=== PATIENT | male | born 1995 | race Caucasian/White ===

== ENCOUNTER 2020-06-18 09:43 | Outpatient (REF) | payer BC, SELFPAY ==
[2020-06-18 11:11] LABS: MANUAL DIFF FLAG NO
[2020-06-18 11:25] LABS: Basophils Percent Auto 0.3 % (0-2); Eosinophils Absolute Auto 0.1 X10*3/uL (0.0-0.4); Eosinophils Percent Auto 1.5 % (0-4); Hematocrit 47.3 % (42-52); Hemoglobin 16.2 g/dl (14.0-18.0); Imm Gran Abs Auto 0.02 X10*3/uL (0.00-0.03); Imm Gran Pct Auto 0.3 % (0.0-0.4); Lymphocytes Absolute Auto 1.7 X10*3/uL (1.2-4.9); Lymphocytes Percent Auto 29.5 % (20-40); Mean Corpuscular HGB Conc 34.2 g/dl (31.0-36.0); Mean Corpuscular Hemoglobin 28.8 pg (27.0-33.0); Mean Corpuscular Volume 84.2 fL (80-98); Mean Platelet Volume 9.4 fL (9.4-12.4); Monocytes Absolute Auto 0.5 X10*3/uL (0.1-1.2); Monocytes Percent Auto 8.5 % (2-11); Neutrophils Absolute Auto 3.5 X10*3/uL (2.0-8.3); Neutrophils Percent Auto 59.9 % (45-73); Platelet Count 289 X10*3/uL (160-400); Red Blood Count 5.62 X10*6/uL (4.60-5.80); Red Cell Distribution Width 12.3 % (11.0-16.0); White Blood Count 5.9 X10*3/uL (4.8-10.8)
[2020-06-18 11:53] LABS: Alanine Aminotransferase 83 U/L (0-40); Albumin Level 4.6 g/dL (3.5-5.0); Alkaline Phosphatase 88 U/L (39-117); Anion Gap 12 (12-20); Aspartate Amino Transferase 39 U/L (5-37); Bilirubin Total 1.1 mg/dL (0.0-1.0); Blood Urea Nitrogen 11 mg/dL (9-16); Calcium 9.7 mg/dL (8.4-10.2); Carbon Dioxide 26 mmol/L (22-29); Chloride 103 mmol/L (96-108); Cholesterol 174 mg/dL; Estimated Glomerular Filt Rate > 60; Glucose Fasting 81 mg/dL (60-99); HDL Cholesterol 59 mg/dL; LDL Cholesterol Calculated 91 mg/dl; Potassium 4.1 mmol/L (3.3-5.1); Sodium 137 mmol/L (135-145); Total Protein 7.6 g/dL (6.5-8.0); Triglycerides 123 mg/dL
== END 2020-06-18 09:44 | disposition home or self-care (01) ==
LOC: HO.MANLDS 09:43
PROVIDERS: PCP Internal Medicine; Visit Provider Internal Medicine
DX: Z00.00 Encounter for general adult medical examination without abnormal findings (principal)
CPT/HCPCS: 36415; 80053; 80061; 85025

== ENCOUNTER 2021-01-03 12:06 | Outpatient (REF) | payer BC, SELFPAY ==
[2021-01-03 14:47] LABS: Alanine Aminotransferase 74 U/L (0-40); Albumin Level 4.5 g/dL (3.5-5.0); Alkaline Phosphatase 80 U/L (39-117); Anion Gap 12 (12-20); Aspartate Amino Transferase 33 U/L (5-37); Bilirubin Total 0.6 mg/dL (0.0-1.0); Blood Urea Nitrogen 12 mg/dL (9-16); Calcium 9.8 mg/dL (8.4-10.2); Carbon Dioxide 26 mmol/L (22-29); Chloride 104 mmol/L (96-108); Estimated Glomerular Filt Rate > 60; Glucose Fasting 72 mg/dL (60-99); Potassium 4.2 mmol/L (3.3-5.1); Sodium 138 mmol/L (135-145); Total Protein 7.7 g/dL (6.5-8.0)
== END 2021-01-03 12:07 | disposition home or self-care (01) ==
LOC: HO.MANLDS 12:06
PROVIDERS: PCP Internal Medicine; Visit Provider Internal Medicine
DX: Z00.00 Encounter for general adult medical examination without abnormal findings (principal)
CPT/HCPCS: 36415; 80053

== ENCOUNTER 2024-04-01 11:41 | Outpatient (REF) | payer BC, SELFPAY ==
[2024-04-01 13:29] LABS: MANUAL DIFF FLAG NO
[2024-04-01 13:37] LABS: Basophils Absolute Auto 0.1 X10*3/uL (0.0-0.2); Basophils Percent Auto 0.6 % (0-2); Eosinophils Absolute Auto 0.2 X10*3/uL (0.0-0.4); Eosinophils Percent Auto 2.2 % (0-4); Hematocrit 48.3 % (42.0-52.0); Hemoglobin 16.3 g/dl (14.0-18.0); Imm Gran Abs Auto 0.02 X10*3/uL (0.00-0.03); Imm Gran Pct Auto 0.2 % (0.0-0.4); Lymphocytes Absolute Auto 2.7 X10*3/uL (1.2-4.9); Lymphocytes Percent Auto 30.8 % (20-40); Mean Corpuscular HGB Conc 33.7 g/dl (31.0-36.0); Mean Corpuscular Hemoglobin 28.7 pg (27.0-33.0); Mean Platelet Volume 9.3 fL (9.4-12.4); Monocytes Absolute Auto 0.8 X10*3/uL (0.1-1.2); Monocytes Percent Auto 8.9 % (2-11); Neutrophils Percent Auto 57.3 % (45-73); Platelet Count 323 X10*3/uL (160-400); Red Blood Count 5.68 X10*6/uL (4.60-5.80); Red Cell Distribution Width 12.9 % (11.0-16.0); White Blood Count 8.7 X10*3/uL (4.8-10.8)
[2024-04-01 14:12] LABS: Alanine Aminotransferase 175 U/L (0-40); Albumin Level 4.4 g/dL (3.5-5.0); Alkaline Phosphatase 78 U/L (39-117); Anion Gap 11 (12-20); Aspartate Amino Transferase 273 U/L (5-37); Bilirubin Total 0.6 mg/dL (0.0-1.0); Blood Urea Nitrogen 10 mg/dL (9-16); Calcium 10.1 mg/dL (8.4-10.2); Carbon Dioxide 26 mmol/L (22-29); Chloride 106 mmol/L (96-108); Estimated Glomerular Filt Rate > 60; Glucose Random 82 mg/dL (60-115); Sodium 139 mmol/L (135-145); Total Protein 8.1 g/dL (6.5-8.0)
--- OUTSIDE RECORDS SUMMARY | 2024-04-01 14:20 | XMS_ITS | Data Portability ---
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 Lab None recorded. Referral None recorded. Procedures None recorded. Surgeries None recorded. Imaging electrocar diogram 2015 016 juan In-Office Order, Internal Use Only DO Not Attach Compendium DO Not Attach Compendium, Do Not Delete/merge, [id number] 6 11:30:53 Medication Orders amoxicilli n 875 mg tablet 2018 019 [facility] #[id number], [address], [place], [id number], 9 17:06:39 Medrol (Yon) 4 mg tablets in a dose pack 2018 019 [facility] #[id number], [address], [place], [id number], 9 17:06:40 Patient TargetsNo targets recorded. Patient Instructions Encounter Date Encounter Id Patient Instructions Last Modified By Organization Details Last Modified Time 10/31/2016 [id number] depression screening* SUSANNE Not available 05/20/2017 05:01:05 discused prevention for his age Next OV 3 yrs -- Labs Eye exam at least 3-5 yrs [email or web address] Not available 10/31/2016 09:30:38 03/03/2018 [id number] possible bilateral serous otitis media and he will continue with OTC Claritin or Zyrtec 1 tablet daily Tylenol as needed for symptomatic relief. If no improvement or any worsening over the next 2-3 days he will follow up with his PCP wild Not available 03/03/2018 17:11:35 Reason for Referral None Reported. Results Created Date Observation Date Name Description Value Unit Range Abnormal Flag Note LastModifiedBy Organization Detail LastModifiedTime 05/26/19 16 elect juan diogr am No observ ation record ed. [email or web address] Not Available 2015 10:55:56 Result Notes None recorded. Problems No Known Problems Procedures Surgical History Date Name Laterality Status Provider Name and Address Organization Details Recorded Time 05/26/19 16 Walk-In Pre Employment Physical completed Nick Collins MD [address] [address], [place], [address], [facility] - [facility], [facility] 05/26/2015 11:17:42 02/05/19 04 Appendectomy completed Darrius Partida [facility], [facility] 05/26/2015 10:32:44 Imaging Results Imaging Date Name Status LastModified by Organization Details LastModified Time 05/26/2015 electrocardiogram completed [email or web address] Informa tion not available 05/26/2015 10:55:56 Procedure Notes None recorded. Medical Equipment None Reported. Allergies No known drug allergies Medications Name Sig Start Date Stop Date Status Note LastModified by Organization Details LastModified Time amoxicillin 875 mg tablet Take 1 tablet every 12 hours by oral route for 7 days. active Not Available Not Available No t Available methylprednisolo ne 4 mg tablets in a dose pack Take 1 dose pk by oral route. active Not Available Not Available No t Available Vitals Date Recorded Body mass index (BMI) Body weight Body height Respiratory rate Heart rate Body temperature Oxygen saturation Oxygen saturation in Arterial blood by Pulse oximetry Systolic blood pressure Diastolic blood pressure Provider Name and Address Organization Details Last Updated DateTime 6 23.9 kg/m2 65020.2 81610 g 177.8 cm 16 /min 78 /min 98.3 [degF] 98 % 98 % 118 mm[Hg] 68 mm[Hg] Coty Stiles [facility], [facility] 6 10:52:28 Date Recorded Body weight Body mass index (BMI) Body height Respiratory rate Heart rate Oxygen saturation Oxygen saturation in Arterial blood by Pulse oximetry Systolic blood pressure Diastolic blood pressure Provider Name and Address Organization Details Last Updated DateTime 7 56540.0 3 g 25.7 kg/m2 177.8 cm 17 /min 82 /min 97 % 97 % 110 mm[Hg] 70 mm[Hg] Donna Moran [facility], [facility] 7 08:59:42 Date Recorded Body weight Body mass index (BMI) Body height Body temperature Heart rate Respiratory rate Oxygen saturation Oxygen saturation in Arterial blood by Pulse oximetry Systolic blood pressure Diastolic blood pressure Provider Name and Address Organization Details Last Updated DateTime 9 33498.1 g 28.1 kg/m2 177.8 cm 98 [degF] 80 /min 16 /min 98 % 98 % 126 mm[Hg] 70 mm[Hg] Jessie Mahmood [facility] 9 16:55:09 Social History Question Answer Notes LastModified by Organizat ion Details LastModified Time Tobacco Smoking Status Never Smoker Darrius urban [facility], [facility] 05/26/2015 10:32:44 Do You Have An Advance Directive? No Information not available 10/31/2016 What Is Your Level Of Alcohol Consumption? Occasional Information not available 10/31/2016 Are You Blind Or Do You Have Difficulty Seeing? No Information not available 10/31/2016 How Much Tobacco Do You Chew? None Information not available 10/31/2016 Are You Deaf Or Do You Have Serious Difficulty Hearing? No Information not available 10/31/2016 Which Illicit Or Recreational Drugs Have You Used? 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 0 Information no t available 10/31/2016 Update Mammo/Colonoscopy In Surgical Hx No Information not available 10/31/2016 Alcohol Use Less Than 1 Per Month Information not available 10/31/2016 Year Quit Tobacco Use 0 Information not available 10/31/2016 Marital Status Single Informatio n not available 10/31/2016 What Was The Date Of Your Most Recent Tobacco Screening? 10/31/2016 Information not available 08/30/2018 At What Age Did You Start Smoking Tobacco? 0 Information not available 10/31/2016 How Much Tobacco Do You Smoke? No Information not available 10/31/2016 How Many Years Have You Smoked Tobacco? 0 Information not available 10/31/2016 Sex: Unknown Functional Status Question Answer Note LastModified by Organization D etails LastModified Time Do you have difficulty walking or climbing stairs? No Information not available 10/31/2016 Do you have difficulty doing errands alone? No Information not available 10/31/2016 Do you have difficulty dressing or bathing? No Information not available 10/31/2016 What is your exercise level? Heavy Information not available 10/31/2016 Mental Status Question Answer Note LastModified by Organization D etails LastModified Time Do you have difficulty concentrating, remembering or making decisions? No Information no t available 10/31/2016 Family History Relationship Description Onset Age of this Age Resolved Age Notes LastModified by Organization Details LastModified Time Mother Alive Not available 10/31/2016 09:01:11 Father Alive Not available 10/31/2016 09:01:11 Father Hypertensive disorder age 50 [email or web address] Not available 2016 09:13:53 Brother Well adult AGE 24 Not avai labsharath 10/31/2016 09:02:03 Maternal Uncle Diabetes mellitus [email or web address] Not available 2016 09:14:13 Medical History Condition Response Cancer (location) N Other N Gout N Thyroid Disease N Kidney Stones N Measles/Mumps N Emphysema/COPD N Sexually Transmitted Disease N Depression N Prostate Problems N Vascular Disease N Rash/Skin Condition N Amputation (location) N Parkinson's N Paralysis N Headaches/Migraines N Cardiac Pacemaker/defibrillator N Nerve Damage / Neuropathy N Arthritis N Sleep disorder/Insomnia N Heart disease / Heart Attack N Crohn's Disease N HIV/AIDS N Stroke/TIA N Colon Problems N High Cholesterol N Serious Injuries N Kidney Disease N Memory Loss/Alzheimer's N Gallbladder disease N High blood pressure N Congestive heart failure N Falls N Alcohol Overuse N Blood Thinner Treatment N Hormone Replacement N Nervous Breakdown N Harper's Esophagus N Anemia N Urinary Problems N Colon Polyps N Gastritis N Hospitalizations (other than operations) N Back pain N Diabetes N Rheumatic Fever N Bleeding Disorder N Cardiac Arrhythmias /irregular heart rat e N Osteopenia/Osteoporosis N Anxiety/Stress N Asthma N Vision Problems N Erectile / Sexual Dysfunction N Ostomies (location) N Seizures N Jaundice N Sleep Apnea N Hepatitis N Cirrhosis N GERD/Ulcer N Chicken Pox N Allergies (other than meds) N Immunizations Vaccine Type Date Status Note Provider Nam e and Address Organization Details Recorded Time Tdap 08/19/2016 completed Donna [facility] [place] [facility], [facility] 10/31/2016 09:00:50 Past Encounters Encounter ID Performer Location Encounter Start Date Encounter Closed Date Diagnosis/Indication Diagnosis SNOMED-CT Code Diagnosis ICD10 Code Diagnosis Note [id number] MD [facility] [address] [place] [id number] 05/26/2015 10:07:23 05/26/2015 11:26:56 History and physical examination, pre-employment 851323345 Z02.1 [id number] MD [facility] [address] [address] 10/31/2016 08:56:11 10/31/2016 09:31:55 Increased body mass index 74509187 Z68.26 elevated BMI.- not an issue he has been exercising and quite muscular Adult [facility] examination 445562221 Z00.00 Screening for disorder 323681288 Z13.9 [id number] Isabel Condon MD [facility] [address] [place], [place] [address] [address] 03/03/2018 16:43:44 03/03/2018 17:12:20 Bilateral earache 436871840 H92.03 Health Concerns Section Related Observation LastModified by Organization Detai ls LastModified Time None Recorded Concern Status LastModified by Organization Details LastModified Time None Recorded Advance Directives Directive N: Payers Encounter Date Sequence Insurance Name Policy Number Policy Bourgeois Covered Member ID Bourgeois Member ID Guarantor Name 05/26/2015 1 *SELF PAY* Er ik D Fickett 05/26/2015 1 [facility] [employer] (HMO) [id number] Daniel A Fickett [id number] Rudy D Fickett 10/31/2016 1 [employer] (O) [id number] Rudy D Fickett [id number] Rudy D Fickett 03/03/2018 1 [facility] [id number] Rudy D Fickett [id number] Rudy D Fickett Notes Date Note Type Note Provider Name and Address Organization Details Recorded Time 6 text/html Extensive/Preventative ExamReported bypatient.Reason for Visit:pre-employment physicalNotes:Patient is here for Pre-employment Work Physical Nick Collins MD [address], [place], [address], [facility] 05/26/2015 11:18:26 7 text/html New Pt to me Take no 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 Karen Gonzalez MD [address], [email or web address], [address], [facility] [employer] [facility], [place] work 10/31/2016 09:32:26 9 text/html Ear ComplaintReported bypatient.Reason for visit:acute complaint Location:bilateral ears; left ear Quality:pain; plugging; hearing loss Severity:unchanged Duration:constant Onset/Timing:gradual;2 days ago Context:no recent swimming; no recent injury Alleviating factors:nothing Aggravating factors:nothing Associated Symptoms:head congestion; no fever; no swollen lymph nodes; no exudates; no jaw pain Isabel Condon MD [address] [address], [place], [address], [facility] - [facility], [facility] 03/03/2018 17:12:55
--- OUTSIDE RECORDS SUMMARY | 2024-04-01 14:20 | XMS_ITS | Data Portability ---
Author Organization [facility] Address [address] [place] [address] Assessment Encounter Date Assessment Date Assessment LastModified by Organization Details LastModified Time 03/08/2022 03/08/2022 [id number] [place] [id number] ([employer]) : MDM LOW MUST MEET 2 OF 3 ELEMENTS: PROBLEMS, DATA OR RISK ELEMENT 1: PROBLEMS ADDRESSED (LOW): 2 OR MORE SELF-LIMITED OR MINOR PROBLEMS OR 1 STABLE CHRONIC ILLNESS OR 1 ACUTE UNCOMPLICATED ILLNESS OR INJURY ELEMENT 2: DATA TO BE REVISED AND ANALYZED (LOW) MUST MEET 1 OF 2 CATEGORIES: CATEGORY 1. REVIEW OF PRIOR EXTERNAL NOTES/RESULTS, ORDERING OF TEST(S) CATEGORY 2. ASSESSMENT REQUIRING INDEPENDENT HISTORIAN(S) INCLUDE WHO THE HISTORIAN IS AND RELATION TO PT AND WHY PT IS UNABLE TO GIVE COMPLETE HISTORY ELEMENT 3: RISK (LOW) RISK OF COMPLICATIONS AND/OR MORBIDITY OR MORTALITY OF PATIENT MANAGEMENT PROVIDER MUST THOROUGHLY DOCUMENT ALL OF THE ELEMENTS COVERED [email or web address] Not available 03/08/2022 09:33:33 04/01/2024 04/01/2024 Patient presented for medication refill. Patient tolerating medication well at current dose without adverse effects. Refilled as below. Discussed plan with patient, who expressed understanding. Follow up as noted below. [email or web address] Not available 04/01/2024 11:28:52 Plan of Treatment Reminders Order Date Submit Date Provider Last Modified By Organization Details Last Modified Time Details Appointments FOLLOW UP 15 2024 11:15A ANDREW DONALDSON Not available Not available Not available Lab CMP, serum or plasma 2024 025 [facility], [address] [place] [address], [place], [address], 04/01/2024 11:38:27 CBC w/ auto diff 2024 025 [facility], [address] [place] [address], [address], 04/01/2024 11:38:27 CMP, serum or plasma 2020 021 [facility], [address] [place], [address], 01/04/2021 11:57:25 Referral None recorded. Procedures None recorded. Surgeries None recorded. Imaging holter monitor - 24 hr monitor 2022 023 [facility] ? [facility] ? Referrals Only, [address] [facility], [place], [address], 04/05/2022 08:40:40 Medication Orders propranol ol 20 mg tablet 2024 025 [facility][id number], [address] [place], [address], 04/01/2024 11:28:55 propranol ol 20 mg tablet 2020 021 [id number], [address] [place], [address], 12/15/2020 10:34:12 Patient TargetsNo targets recorded. Patient InstructionsNo instructions recorded. Reason for Referral None Reported. Results Created Date Observation Date Name Description Value Unit Range Abnormal Flag Note LastModifiedBy Organization Detail LastModifiedTime Result Notes None recorded. Problems Name Problem SNOMED Code Status Onset Date Resolution Date Notes Provider Name and Address Organization Details Recorded Time Environmen ahmet allergy 753609995 Active 2020 Delon Anderson DO [address] [place], [address], [facility] 15:04:26 Anxiety 48512982 Active 2020 ANDREW MCCLELLAND [address] [place], [address], [facility] 1 11:44:35 Intermitte nt palpitatio ns 268047557 Active 2022 Delon Anderson DO [address] [place], [address], [facility] 3 09:30:29 Palpitatio ns 12530673 Active 2024 ANDREW MCCLELLAND [address] [place], [address], [facility] 5 11:30:07 Problem Notes None recorded. Medical Equipment None Reported. Allergies No known drug allergies Medications Name Sig Start Date Stop Date Status Note LastModified by Organization Details LastModified Time azithromyci n 250 mg tablet TAKE 2 TABLETS BY MOUTH TODAY, THEN TAKE 1 TABLET DAILY FOR 4 DAYS DIRECTED 03/14 completed Not Available Not Available Not Available Tubersol 5 tub. unit/0.1 mL intradermal injection solution Inject 1 unit by intraderm al route. 12/15 completed Not Available Not Available Not Available methylpredn isolone 4 mg tablet TAKE 6 TABLETS ON DAY 1 AND DECREASE BY 1 TABLET EACH DAY FOR A TOTAL OF 6 DAYS 01/24 completed Not Available Not Available Not Available propranolol 10 mg tablet TAKE 1 TABLET BY MOUTH EVERY DAY 01/03 completed Not Available Not Available Not Available amoxicillin 875 mg tablet TAKE 1 TABLET (ORAL) 2 TIMES PER DAY FOR 10 DAYS FOR INFECTION 12/15 completed Not Available Not Available Not Available meclizine 25 mg tablet TAKE 1 TABLET (ORAL) 1 TIME PER DAY FOR MOTION SICKNESS. TAKE FIRST DOSE 1 HOUR PRIOR TO TRAVEL 12/15 completed Not Available Not Available Not Available prednisone 50 mg tablet TAKE 1 TABLET EVERY MORNING FOR 3 DAYS 12/15 completed Not Available Not Available Not Available methylpredn isolone 4 mg tablets in a dose pack TAKE 6 TABLETS ON DAY 1 DIRECTED ON PACKAGE AND DECREASE BY 1 TAB EACH DAY FOR A TOTAL OF 6 DAYS 03/14 completed Not Available Not Available Not Available propranolol 20 mg tablet Take 1 tablet every day by oral route as directed for 90 days. 2024 active Not Available Not Available Not Avai lable Zyrtec 10 mg capsule Take 1 capsule every day by oral route. active Not Available Not Available No t Available Vitals Date Recorded Body height Oxygen saturation Oxygen saturation in Arterial blood by Pulse oximetry Heart rate Systolic blood pressure Diastolic blood pressure Provider Name and Address Organization Details Last Updated DateTime 1 177.8 cm 98 % 98 % 90 /min 148 mm[Hg] 90 mm[Hg] Raisa Sarabia [facility] 1 10:13:52 Date Recorded Body height Body mass index (BMI) Body weight Systolic blood pressure Diastolic blood pressure Provider Name and Address Organization Details Last Updated DateTime 01/03/2021 177.8 cm 29.7 kg/m2 40082.6 2 g 110 mm[Hg] 74 mm[Hg] Delon Anderson DO [address] [place] [address], [phone] 1 11:46:05 Date Recorded Body weight Heart rate Oxygen saturation Oxygen saturation in Arterial blood by Pulse oximetry Systolic blood pressure Diastolic blood pressure Provider Name and Address Organization Details Last Updated DateTime 4 315357. 55 g 79 /min 97 % 97 % 110 mm[Hg] 72 mm[Hg] Alexandrea Drew [facility] 4 11:23:52 Date Recorded Body height Body mass index (BMI) Body weight Heart rate Oxygen saturation Oxygen saturation in Arterial blood by Pulse oximetry Systolic blood pressure Diastolic blood pressure Provider Name and Address Organization Details Last Updated DateTime 5 177.8 cm 32.6 kg/m2 469934. 26 g 77 /min 94 % 94 % 118 mm[Hg] 82 mm[Hg] Alexandrea Saud [facility] 5 11:22:58 Social History Question Answer Notes LastModified by Organizat ion Details LastModified Time Tobacco Smoking Status Never Smoker Delon Anderson DO [address] [place] [address], [address], [facility] 06/16/2020 15:04:43 What Was The Date Of Your Most Recent Tobacco Screening? 04/01/2024 [email or web address] Information not available 04/01/2024 Sex: Unknown Functional Status None recorded. Mental Status None recorded. Family History Nothing Reported. Medical History No medical history recorded. Immunizations Vaccine Type Date Status Note Provider Nam e and Address Organization Details Recorded Time COVID-19, mRNA, LNP-S, PF, 30 mcg/0.3 mL dose 1 completed Not Available [facility] 06/20/2021 14:25:33 COVID-19, mRNA, LNP-S, PF, 30 mcg/0.3 mL dose 1 completed Not Available [facility] 06/20/2021 14:25:33 Tdap 1 completed Not Available [facility] 06/20/2021 14:25:33 Influenza, split virus, quadrivalent, preservative 1 completed Not Available [facility] 06/20/2021 14:25:33 meningococcal MCV4P 5 completed Not Available [facility] 06/20/2021 14:25:33 COVID-19, mRNA, LNP-S, PF, 30 mcg/0.3 mL dose 1 completed Not Available [facility] 06/20/2021 14:25:33 Past Encounters Encounter ID Performer Location Encounter Start Date Encounter Closed Date Diagnosis/Indication Diagnosis SNOMED-CT Code Diagnosis ICD10 Code Diagnosis Note [id number] Delon Anderson DO [facility] [address] [facility],[place] [address] 06/16/2020 14:45:59 06/16/2020 15:43:33 Adult health examination 851703128 Z00.00 [id number] ANDREW MCCLELLAND [facility] [address] [place] [address],[place] [address] 07/28/2020 11:29:00 07/28/2020 13:08:24 Anxiety 42905441 F41.1 will trial propronalo miguel call back in a week with update Palpitations 72355752 R0 0.2 agreed to start low dose [id number] ANDREW MCCLELLAND [facility] [address] [facility],[place] [address] 08/30/2020 10:44:25 08/30/2020 11:23:47 Tuberculosis screening 402779513 Z11.1 [id number] Delon Anderson, [facility] [address] [facility] [address] [address] 09/01/2020 09:52:52 09/01/2020 09:59:09 Tuberculosis screening 471344961 Z11.1 [id number] ANDREW MCCLELLAND [facility] [address] [facility] [address] [address] 12/15/2020 09:55:18 12/15/2020 10:54:26 Anxiety 42286091 F41.1 discussed in detail what to do for coping mechanisms what to expect and how to manage his anxiety Palpitations 76668275 R0 0.2 will increase his dose to 20 mg as he states it helps with both his anxiety [place] [id number] Delon Anderson [facility] [address] [facility] [address] [address] 01/03/2021 11:24:14 01/03/2021 12:04:57 Active or passive immunization 761529390 Z23 Adult heal th examination 755055742 Z00.00 [id number] Delon Anderson, [facility] [address] [facility] [address] [address] 03/08/2022 08:38:05 03/10/2022 10:38:56 Intermittent palpitations 006398525 R00.2 Anxiety 51196902 F41.1 had issues with a lot of stress this past yearlost a close friendwork [place] [id number] ANDREW MCCLELLAND [facility] [address] [facility] [address] [address] 06/26/2023 10:54:47 06/27/2023 07:58:58 Depression screening 405192238 Z13.31 negative Intermitte nt palpitations 554309553 R00.2 stabledoin g really well [id number] ANDREW MCCLELLAND [facility] [address] [facility] [address] [address] 04/01/2024 11:14:02 04/01/2024 13:39:39 Renewal of prescription 025824365 Z76.0 Palpitations 82377364 R0 0.2 stable, works well for the patient Anxiety 56903941 F41.1 stable Screening for cardiovascular system disease 721468468 Z13.6 will set up with screening Health Concerns Section Related Observation LastModified by Organization Detai ls LastModified Time None Recorded Concern Status LastModified by Organization Details LastModified Time None Recorded Advance Directives Directive None Recorded Payers Encounter Date Sequence Insurance Name Policy Number Policy Bourgeois Covered Member ID Bourgeois Member ID Guarantor Name 12/15/2020 1 [place] [facility] [id number] Daniel A Fickett [id number] Rudy Fickett 01/03/2021 1 [place] [facility] [id number] Daniel A Fickett [id number] Rudy Fickett 03/08/2022 1 [place] [facility] [id number] Daniel A Fickett [id number] Rudy Fickett 06/26/2023 1 [place] [facility] ([place]) [id number] Daniel A Fickett [id number] Rudy Fickett 04/01/2024 1 [place] [facility] ([place]) [id number] Daniel A Fickett [id number] Rudy Fickett Notes Date Note Type Note Provider Name a ok Address Organization Details Recorded Time 1 text/html c/o palpitations the patient reports that he states thinking about it when he has been having the palpitations with increased anxiety with his developing his palpitations the patient reports that they are intermittentthe patient reports that they feel like skipped beatsincreased with the anxiety did submit order for the event monitor to r/o any concerning arrhythmiapatient agrees with this nimco fu in 30 days after monitoring ANDREW MCCLELLAND [address] [place] [address], [place], [address], [facility] 12/15/2020 10:40:40 1 text/html Annual WellnessReported bypatient.Diet and Nutrition:healthy diet Fracture Risk:no history of fractures; no recent explained fracture; no sudden unexplained fractures; no previous musculoskeletal injuries Physical Activity:exercises on a regular basis; recent increase in physical activity; good physical condition Additional Lifestyle Factors:no tobacco use; no alcohol intake; stopped drinking alcohol Depression Risk:never feels sad, empty, or tearful; no loss of interest in activities; no significant changes in weight; no sleep disturbances or insomnia; no agitation; no loss of energy; no feelings of worthlessness or guilt; no thoughts of suicide; no history of depression; no history of mood disorders Hearing:no loss of hearing Vision:no vision problemsNotes:has noted a big improvement from the 20mg for propranolol Delon Anderson DO [address] [place] [address], [phone], [facility] 01/03/2021 12:04:10 3 text/html Anxiety/DepressionRepo rted bypatient.Severity:den ies suicidal ideations; able to maintain relationships; does not interfere with activities of daily living Context:no major life stressors Associated Symptoms:denies homicidal ideations; no significant weight gain; no significant weight loss; no visual/auditory hallucinations; no delusions; no shortness of breath; mood good; no anxiety; no crying spells; no panic; no isolation; sleeping well; appetite good; energy good; no apathy; maintaining functionality patient is evaluated via tele/video assessment per patient consentduring current pandemic.here for med follow uppropranolol has helped a great deal but still has on occasionally states he has noted the palpitations can come on with certain meals ex steak dinner or chinesenoted every time could this be vagal nerve irritation?also did not call him back for the holter monitor Delon Anderson DO [address] [place] [address], [address], [facility] 03/08/2022 09:35:42 4 text/html f/u appt palpitations: doing better with the propranololthe patient notes that he gets palpitations with eating greasier foodshas been good with his diet doing well no seasonal allergies doing well on the propranolol ANDREW MCCLELLAND [address] [place], [address], [facility] 06/26/2023 11:37:54 text/html medication check palpitations: the patient is doing well on the medication, no issues or allergies, will continue on the medicationanxiety: stable, no issues or concerns needs updated lab workthe patient is doing well overallno questions ANDREW MCCLELLAND [address] [place] [address], [address], [facility] 04/01/2024 11:38:40
--- OUTSIDE RECORDS SUMMARY | 2024-04-01 14:21 | XMS_ITS | Continuity of Care Document ---
Author Organization [facility], [facility] Address [address] [place] [address] [place] [address] Assessment Encounter Date Assessment Date Assessment LastModified by Organization Details LastModified Time 04/01/2024 04/01/2024 Patient presented for medication refill. Patient tolerating medication well at current dose without adverse effects. Refilled as below. Discussed plan with patient, who expressed understanding . Follow up as noted below. [email or web address] Not available 04/01/2024 11:28:52 Plan of Treatment Reminders Order Date Submit Date Provider Last Modified By Organization Details Last Modified Time Details Appointments FOLLOW UP 15 2024 11:15A M ANDREW MCCLELLAND Not available Not available Not available Lab CMP, serum or plasma 2024 025 [facility], [address] [place] [address], [address], 04/01/2024 11:38:27 CBC w/ auto diff 2024 025 [facility], [address] [place] [address], [place], [address], 04/01/2024 11:38:27 Referral None recorded. Procedures None recorded. Surgeries None recorded. Imaging None recorded. Medication Orders propranol ol 20 mg tablet 2024 025 [id number], [address] [facility], [place], [address], 04/01/2024 11:28:55 Patient TargetsNo targets recorded. Patient InstructionsNo instructions recorded. Reason for Referral None Reported. Problems Name Problem SNOMED Code Status Onset Date Resolution Date Notes Provider Name and Address Organization Details Recorded Time [facility] 176282080 Active 2020 Delon Anderson, [address] [place] [address], [address], [facility] 1 15:04:26 Anxiety 94313213 Active 2020 ANDREW MCCLELLAND [address] [place] [address], [address], [facility] 1 11:44:35 Intermitte nt palpitatio ns 951217099 Active 2022 Delon Anderson DO [address] [place] [address], [address], [facility] 3 09:30:29 Palpitatio ns 87842140 Active 2024 ANDREW MCCLELLAND [address] [place] [address], [address], [facility] 5 11:30:07 Problem Notes None [...] t Available Vitals Date Recorded Body height Body mass index (BMI) Body weight Heart rate Oxygen saturation Oxygen saturation in Arterial blood by Pulse oximetry Systolic blood pressure Diastolic blood pressure Provider Name and Address Organization Details Last Updated DateTime 5 177.8 cm 32.6 kg/m2 575774. 26 g 77 /min 94 % 94 % 118 mm[Hg] 82 mm[Hg] Alexandrea Villavicencio [facility] 5 11:22:58 Social History Question Answer Notes LastModified by Organizat ion Details LastModified Time Tobacco Smoking Status Never Smoker Delon Anderson, DO [address] [place] [address], [place], [address], [facility] 06/16/2020 15:04:43 What Was The [...] mcg/0.3 mL dose 1 completed Not Available [facility] 06/20/2021 14:25:33 COVID-19, mRNA, LNP-S, PF, 30 mcg/0.3 mL dose 1 completed Not Available [facility] 06/20/2021 14:25:33 Tdap 1 completed Not Available [facility] 06/20/2021 14:25:33 Influenza, split virus, quadrivalent, preservative 1 completed Not Available [facility] 06/20/2021 14:25:33 meningococcal MCV4P 5 completed Not Available [facility] 06/20/2021 14:25:33 COVID-19, mRNA, LNP-S, PF, 30 mcg/0.3 mL dose 1 completed Not Available [facility] 06/20/2021 14:25:33 Past Encounters Encounter ID Performer Location Encounter Start Date Encounter Closed Date Diagnosis/Indication Diagnosis SNOMED-CT Code Diagnosis ICD10 Code Diagnosis Note [id number] ANDREW MCCLELLAND Internal Medicine [address] [facility] [address] 04/01/2024 11:14:02 04/01/2024 13:39:39 Renewal of prescription 081441007 Z76.0 Palpitations 34340834 R0 0.2 stable, works well for the patient Anxiety 22873198 F41.1 stable Screening for cardiovascular system disease 389929812 Z13.6 will set up with screening Health Concerns Section Related Observation LastModified by Organization Detai ls LastModified Time None Recorded Concern Status LastModified by Organization Details LastModified Time None Recorded Payers Encounter Date Sequence Insurance Name Policy Number Policy Bourgeois Covered Member ID Bourgeois Member ID Guarantor Name 04/01/2024 1 [facility]: [facility] [id number] Daniel Edge [id number] Edge Notes Date Note Type Note Provider Name a nm Address Organization Details Recorded Time 04/01/2024 text/html medication check palpitations: the patient is doing well on the medication, no issues or allergies, will continue on the medicationanxiet y: stable, no issues or concerns needs updated lab workthe patient is doing well overallno questions ANDREW MCCLELLAND [address] [place], [address], [facility] 04/01/2024 11:38:40
== END 2024-04-01 11:42 | disposition home or self-care (01) ==
LOC: HO.MANLDS 11:41
PROVIDERS: Visit Provider Physician Assistant
DX: Z13.6 Encounter for screening for cardiovascular disorders (principal)
CPT/HCPCS: 36415; 80053; 85025

== ENCOUNTER 2024-05-06 09:15 | Outpatient (REF) | payer BC, SELFPAY ==
--- OUTSIDE RECORDS SUMMARY | 2024-05-06 10:17 | XMS_ITS | Data Portability ---
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 Lab CMP, serum or plasma 2024 025 [facility], [address] [place] [address], [place], [address], 12:46:10 CBC w/ auto diff 2024 025 [facility], [address] [facility], [place], [address], 5 11:38:27 CMP, serum or plasma 2020 021 [facility], [address] [place], [address], 11:57:25 Referral None recorded. Procedures None recorded. Surgeries None recorded. Imaging holter monitor - 24 hr [address] [facility] ? [facility] ? Referrals Only, [address] [facility], [place], [address], 3 08:40:40 Medication Orders propranolo l 20 mg tablet 2024 025 [id number], [address] [place], [address], 5 11:28:55 propranolo l 20 mg tablet 2020 021 [id number], [address] [place], [address], 10:34:12 Patient TargetsNo targets recorded. Patient InstructionsNo instructions recorded. Reason for Referral None Reported. Results Created Date Observation Date Name Description Value Unit Range Abnormal Flag Note LastModifiedBy Organization Detail LastModifiedTime Result Notes None recorded. Problems Name Problem SNOMED Code Status Onset Date Resolution Date Notes Provider Name and Address Organization Details Recorded Time [facility] allergy 868311127 Active 2020 Delon Anderson DO [address] [place], [address], [facility] 15:04:26 Anxiety 25330662 Active 2020 ANDREW MCCLELLAND [address] [place], [address], [facility] 11:44:35 Intermitte nt palpitatio ns 184468224 Active 2022 Delon Anderson, DO [address] [facility], [place], [address], [facility] 3 09:30:29 Palpambar ns 80724896 Active 2024 ANDREW MCCLELLAND [address] [place], [address], [facility] 5 11:30:07 Problem Notes [...] oral route as directed for 90 days. active Not Available Not Available No t Available Zyrtec 10 mg capsule Take 1 capsule [...] /min 148 mm[Hg] 90 mm[Hg] Raisa Sarabia [facility] 1 10:13:52 Date Recorded Body height Body mass index (BMI) Body weight Systolic blood pressure Diastolic blood pressure Provider Name and Address Organization Details Last Updated DateTime 01/03/2021 177.8 cm 29.7 kg/m2 29017.6 2 g 110 mm[Hg] 74 mm[Hg] Delon Anderson DO [address] [place], [address], [facility] 1 11:46:05 Date Recorded Body weight Heart rate Oxygen saturation Oxygen saturation in Arterial blood by Pulse oximetry Systolic blood pressure Diastolic blood pressure Provider Name and Address Organization Details Last Updated DateTime 4 771642. 55 g 79 /min 97 % 97 % 110 mm[Hg] 72 mm[Hg] Alexandrea Villavicencio [facility] 4 11:23:52 Date Recorded Body height Body mass index (BMI) Body weight Heart rate Oxygen saturation Oxygen saturation in Arterial blood by Pulse oximetry Systolic blood pressure Diastolic blood pressure Provider Name and Address Organization Details Last Updated DateTime 5 177.8 cm 32.6 kg/m2 648072. 26 g 77 /min 94 % 94 % 118 mm[Hg] 82 mm[Hg] Alexandrea Villavicencio [facility] 5 11:22:58 Social History Question Answer Notes LastModified by Organizat ion Details LastModified Time Tobacco Smoking Status Never Smoker Delon Anderson DO [address] [place], [address], [facility] 06/16/2020 15:04:43 What Was [...] mcg/0.3 mL dose 1 completed Not Available [facility] 06/20/2021 14:25:33 COVID-19, mRNA, LNP-S, PF, 30 mcg/0.3 mL dose 1 completed Not Available [facility] 06/20/2021 14:25:33 Tdap 1 completed Not Available [facility] 06/20/2021 14:25:33 Influenza, split virus, quadrivalent, preservative 1 completed Not Available [facility] 06/20/2021 14:25:33 meningococcal MCV4P 5 completed Not Available [facility] 06/20/2021 14:25:33 COVID-19, mRNA, LNP-S, PF, 30 mcg/0.3 mL dose 1 completed Not Available [facility] 06/20/2021 14:25:33 Past Encounters Encounter ID Performer Location Encounter Start Date Encounter Closed Date Diagnosis/Indication Diagnosis SNOMED-CT Code Diagnosis ICD10 Code Diagnosis Note [id number] Delon Anderson DO [facility] [address] [facility] [address] 06/16/2020 14:45:59 06/16/2020 15:43:33 Adult health examination 590032246 Z00.00 [id number] ANDREW MCCLELLAND [facility] [address] [facility],[place] [address] 07/28/2020 11:29:00 07/28/2020 13:08:24 Anxiety 72057493 F41.1 will trial propronalo lwill call back in a week with update Palpitations 22866358 R0 0.2 agreed to start low dose [id number] ANDREW MCCLELLAND [facility] [address] [facility],[place] [address] 08/30/2020 10:44:25 08/30/2020 11:23:47 Tuberculosis screening 137887360 Z11.1 [id number] Delon Anderson [facility] [address] [facility],[place] [address] 09/01/2020 09:52:52 09/01/2020 09:59:09 Tuberculosis screening 752701181 Z11.1 [id number] ANDREW MCCLELLAND [facility] [address] [place] [address], [address] [facility] [address] 12/15/2020 09:55:18 12/15/2020 10:54:26 Anxiety 76661235 F41.1 discussed in detail what to do for coping mechanisms what to expect and how to manage his anxiety Palpitations 99044998 R0 0.2 will increase his dose to 20 mg as he states it helps with both [place] [id number] Delon Anderson [facility] [address] [place] [address], [place] [address] 01/03/2021 11:24:14 01/03/2021 12:04:57 Active or passive immunization 245737202 Z23 Adult [facility] th examination 005786722 Z00.00 [id number] Delon Anderson [facility] Internal [address], [place] [address] 03/08/2022 08:38:05 03/10/2022 10:38:56 Intermittent palpitations 653393128 R00.2 Anxiety 61464640 F41.1 had issues with a lot of stress this past yearlost a close friendwork [place] [id number] ANDREW MCCLELLAND [facility] [address] [place] [address], [place] [address] 06/26/2023 10:54:47 06/27/2023 07:58:58 Depression screening 969161873 Z13.31 negative Intermitte nt palpitations 619526155 R00.2 stabledoin g really well [id number] ANDREW MCCLELLAND [facility] [address] [facility],[place] [address] [facility] [place] [address] 04/01/2024 11:14:02 04/01/2024 13:39:39 Renewal of prescription 744421393 Z76.0 Palpitations 29876541 R0 0.2 stable, works well for the patient Anxiety 64721735 F41.1 stable Screening for cardiovascular system disease 966004104 Z13.6 will set up with screening Health Concerns Section Related Observation LastModified by Organization Detai ls LastModified Time None Recorded Concern Status LastModified by Organization Details LastModified Time None Recorded Advance Directives Directive None Recorded Payers Encounter Date Sequence Insurance Name Policy Number Policy Bourgeois Covered Member ID Bourgeois Member ID Guarantor Name 12/15/2020 1 [place] [facility] [place] [id number] Daniel A Fickett [id number] Rudy Fickett 01/03/2021 1 [place] [facility] [place] [id number] Daniel A Fickett [id number] Rudy Fickett 03/08/2022 1 [place] [facility] [place] [id number] Daniel A Fickett [id number] Rudy Fickett 06/26/2023 1 [place] [facility] [place] [id number] Daniel A Fickett [id number] Rudy Fickett 04/01/2024 1 [place] [facility] [place] [id number] Daniel A Fickett [id number] Rudy Fickett Notes Date Note Type Note Provider Name a nd Address Organization Details Recorded Time 1 text/html [...] in 30 days after monitoring ANDREW MCCLELLAND [address] [place] [address], [place], [address], [facility] 12/15/2020 10:40:40 1 text/html Annual [...] improvement from the 20mg for propranolol Delon HamptonSahra Anderson DO [address] [place] [address], [address], [facility] 01/03/2021 12:04:10 3 text/html Anxiety/DepressionRepo [...] him back for the holter monitor Delon nAderson DO [address] [place], [address], [facility] 03/08/2022 09:35:42 4 text/html f/u appt palpitations: doing better with the propranololthe patient notes that he gets palpitations with eating greasier foodshas been good with his diet doing well no seasonal allergies doing well on the propranolol ANDREW MCCLELLAND [address] [place], [address], [facility] 06/26/2023 11:37:54 5 text/html medication check palpitations: the patient is doing well on the medication, no issues or allergies, will continue on the medicationanxiety: stable, no issues or concerns needs updated lab workthe patient is doing well overallno questions ANDREW MCCLELLAND [address] [place] [address], [place], [address], [facility] 04/01/2024 11:38:40
[2024-05-06 13:15] LABS: MANUAL DIFF FLAG NO
[2024-05-06 13:23] LABS: Basophils Absolute Auto 0.1 X10*3/uL (0.0-0.2); Basophils Percent Auto 0.7 % (0-2); Eosinophils Absolute Auto 0.1 X10*3/uL (0.0-0.4); Eosinophils Percent Auto 1.6 % (0-4); Hematocrit 50.9 % (42.0-52.0); Hemoglobin 17.2 g/dl (14.0-18.0); Imm Gran Abs Auto 0.02 X10*3/uL (0.00-0.03); Imm Gran Pct Auto 0.3 % (0.0-0.4); Lymphocytes Absolute Auto 2.4 X10*3/uL (1.2-4.9); Lymphocytes Percent Auto 31.9 % (20-40); Mean Corpuscular HGB Conc 33.8 g/dl (31.0-36.0); Mean Corpuscular Hemoglobin 28.4 pg (27.0-33.0); Mean Platelet Volume 9.5 fL (9.4-12.4); Monocytes Absolute Auto 0.6 X10*3/uL (0.1-1.2); Monocytes Percent Auto 7.5 % (2-11); Neutrophils Absolute Auto 4.3 x10*3/uL (2.0-8.3); Platelet Count 364 X10*3/uL (160-400); Red Blood Count 6.06 X10*6/uL (4.60-5.80); White Blood Count 7.4 X10*3/uL (4.8-10.8)
[2024-05-06 14:13] LABS: Alanine Aminotransferase 91 U/L (0-40); Albumin Level 4.6 g/dL (3.5-5.0); Alkaline Phosphatase 88 U/L (39-117); Anion Gap 12 (12-20); Aspartate Amino Transferase 47 U/L (5-37); Bilirubin Total 0.6 mg/dL (0.0-1.0); Blood Urea Nitrogen 14 mg/dL (9-16); Carbon Dioxide 24 mmol/L (22-29); Chloride 106 mmol/L (96-108); Estimated Glomerular Filt Rate > 60; Glucose Random 91 mg/dL (60-115); Potassium 4.1 mmol/L (3.3-5.1); Sodium 138 mmol/L (135-145)
== END 2024-05-06 09:16 | disposition home or self-care (01) ==
LOC: HO.MANLDS 09:15
PROVIDERS: Visit Provider Physician Assistant
DX: Z13.6 Encounter for screening for cardiovascular disorders (principal)
CPT/HCPCS: 36415; 80053; 85025